=== PATIENT | male | born 1945 | race Caucasian/White ===

== ENCOUNTER 2020-03-26 16:18 | Inpatient (IN) | payer MEDICARE, SELFPAY ==
--- NOTE | ~2020-03-26 | CT_ITS ---
EXAMINATION: CT abdomen pelvis w con INDICATION: Right lower quadrant abdominal pain TECHNIQUE: Computed tomographic images of the abdomen and pelvis were obtained after the administrati on of 100 cc of Omnipaque 350 intravenous contrast. The dose-length product (DLP) was 1390.99 mGy-cm. Automated exposure control and iterative reconstruction technique were employed. COMPARISON: 09/01/2015 FINDINGS: Minimal dependent atelectasis is present in the lung bases. The heart size is normal. There appears to be mild enlargement of the right coronary artery in its midportion of unclear significanc e. Emphysema is also noted in the visualized lung bases. The heart size is normal. There is calcified coronary artery atherosclerosis. The liver, spleen, pancreas, and adrenal glands are normal. A stone is present in the nondistended gallbladder. There is an appendicolith in the base of the appendix wh ich is dilated up to 1.6 cm. There is edematous stranding of the periappendiceal fat. No periappendic eal abscess is identified. There are tiny foci of gas near the cecum which appear to be extraluminal. There is calcified atherosclerosis of the aorta and many of the other arteries. There are no dilated loops of bowel. No pathologically enlarged abdominal or pelvic lymph nodes are identified. There is severe lumbar spondylosis. There is a fat-containing umbilical hernia. IMPRESSION: 1. Ruptured acute appendicitis without abscess. 2. Cholelithiasis without evidence of cholecystitis. 3. Mild enlargement of the right coronary artery and its midportion of unclear significance. Reviewed, dictated and finalized at location A.
--- NOTE | ~2020-03-26 | XR_ITS ---
EXAMINATION: XR chest 1V portable INDICATION: COPD TECHNIQUE: Portable AP chest at 2150 hours COMPARISON: 07/15/2017 FINDINGS: Lucencies in the upper lung zones are consistent with emphysema. There is no pleural effusi on or pneumothorax. The heart size is normal for technique. IMPRESSION: 1. Emphysema Reviewed, dictated and finalized at location A. IMPRESSION: 1. Emphysema
--- NOTE | ~2020-03-26 | XR_ITS ---
EXAMINATION: XR chest 2V DATE: 03/29/2020 08:14 INDICATION: Congestive heart failure. TECHNIQUE: Frontal and lateral views of the chest were obtained. COMPARISON: Chest single view 03/26/2020, CT abdomen and pelvis 03/26/2020 FINDINGS: There are lucencies in the lungs, consistent with emphysema. There are airspace opacities i n the lower lung zones. No pleural effusion or pneumothorax. The heart size is normal. IMPRESSION: 1. Airspace opacities in the lower lung zones, consistent with atelectasis versus pneumonia. 2. Emphysema. Reviewed, dictated and finalized at location A. IMPRESSION: 1. Airspace opacities in the lower lung zones, consistent with atelectasis vers us pneumonia. 2. Emphysema.
[2020-03-26 16:23] VITALS: BP 113/85; PULSE 88; RESP 18; TEMP 36.8; O2SAT 96
[2020-03-26 16:39] LABS: Basophils Absolute Auto 0.1 K/mm3 (0.0-0.1); Basophils Percent Auto 0.3 % (0.2-1.2); Eosinophils Percent Auto 0.1 % (0-4.4); Hematocrit 51.7 % (42.0-52.0); Hemoglobin 17.6 g/dL (14.0-18.0); Immature Granulocyte Absolute 0.05 K/mm3 (0.00-0.031); Immature Granulocyte Percent A 0.3 % (0-0.5); Lymphocytes Absolute Auto 1.33 K/mm3 (0.9-3.2); Lymphocytes Percent Auto 9.2 % (18.3-44.2); Mean Corpuscular Hemoglobin 34.2 pg (26-34); Mean Corpuscular Volume 100.4 fl (80-100); Mean Platelet Volume 10.8 fl (7.4-10.4); Monocytes Absolute Auto 1.5 K/mm3 (0.1-0.6); Monocytes Percent Auto 10.4 % (2.6-8.5); Neutrophils Absolute Auto 11.4 K/mm3 (1.3-6.7); Neutrophils Percent Auto 79.7 % (45.5-73.1); Platelet Count Result 177 k/mm3 (150-375); Red Blood Count 5.15 M/mm3 (4.6-6.20); Red Cell Distribution Width 14.2 % (11.5-14.5); White Blood Count 14.4 K/mm3 (4.5-10.0)
[2020-03-26 16:51] LABS: Alanine Aminotransferase 22 U/L (4-50); Albumin Level 4.7 g/dL (3.5-5.1); Alkaline Phosphatase 73 U/L (38-126); Aspartate Amino Transferase 29 U/L (17-59); Bilirubin,Total 2.8 mg/dL (0.2-1.3); Blood Urea Nitrogen 23 mg/dL (9-20); Calcium 9.6 mg/dL (8.4-10.2); Carbon Dioxide 23 mmol/L (22-30); Chloride 103 mmol/L (98-107); Estimated CRCL calculation 57 ml/min; Estimated Glomerular Filt Rate 54; Glucose 155 mg/dL (75-110); Lipase 53 U/L (23-300); Potassium 4.1 mmol/L (3.4-5.0); Sodium 137 mmol/L (137-145)
[2020-03-26 17:11] LABS: Add Urine Microscopic? YES; Appearance Urine Clear (Clear); Bilirubin Urine Negative (Negative); Blood Urine 1+ (Negative); Color Urine Yellow (Yellow); Glucose Urine UA Negative (Negative); Ketones Urine Negative (Negative); Leukocyte Esterase Ur Negative LEU/UL (Negative); Mucus Urine Few /lpf; Nitrate Urine Negative (Negative); Protein Urine Negative (Negative); Specific Grav Ur 1.023 (1.001-1.035); Squamous Epithelial Cell Urine Rare /hpf (Few); WBC Urine 0-3 /hpf
--- NOTE | 2020-03-26 18:51 | ECG_ITS ---
Measurements Intervals [place] Rate: 141 P: MS: 0 QRS: -59 QRSD: 134 T: 1 QT: 327 QTc: 501 Interpretive Statements ATRIAL FIBRILLATION WITH RAPID VENTRICULAR RESPONSE VENTRICULAR PREMATURE COMPLEX RIGHT BUNDLE BRANCH BLOCK CONSIDER INFERIOR INFARCT, AGE INDETERMINATE BASELINE ARTIFACT- I, III, AVR, AVL, AVF, V1-V2, V6 ABNORMAL ECG Electronically Signed On 03-27-2020 7:31:45 CDT by Nikita Bolaños D.O.
--- NOTE | 2020-03-26 18:55 | ED.GENADULT ---
HPI - General Adult General Chief complaint: Abdominal Pain Stated complaint: rlq abd pain Time Seen by Provider: 03/26/20 18:37 History of Present Illness HPI narrative: Patient is a 74 y/o male complaining of right lower abdominal pain since yesterday. He describes his pain as sharp with no radiation. He rates his pain as 10/10. He took Exedrin which relieved his pain slightly. He denies any fever, chest pain, nausea, vomiting, diarrhea or dysuria. Related Data Home Medications Medication Instructions Recorded Confirmed apixaban [Eliquis] 5 mg PO DAILY 03/26/20 03/26/20 carvedilol 12.5 mg PO BID 03/26/20 03/26/20 furosemide 40 mg PO DAILY 03/26/20 03/26/20 insulin detemir U-100 [Levemir 28 unit SUBCUT HS 03/26/20 03/26/20 U-100 Insulin] losartan 25 mg PO DAILY 03/26/20 03/26/20 Allergies Allergy/AdvReac Type Severity Reaction Status Date / Time No Known Allergies Allergy Verified 03/26/20 16:25 Review of Systems Constitutional: Constitutional: Denies chills, Denies fever(s), Denies headache(s) and Denies weakness Eyes: Eyes: Denies blurry vision ENT: Denies headache(s) and Denies neck pain Cardiovascular: Cardiovascular: Denies chest pain and Denies dyspnea Respiratory: Respiratory: Denies cough and Denies dyspnea Gastrointestinal: Gastrointestinal: Reports abdominal pain, Denies diarrhea, Denies nausea and Denies vomiting Genitourinary: Genitourinary: Denies hematuria and Denies dysuria Musculoskeletal: Musculoskeletal: Denies back pain and Denies neck pain Neurologic: Denies headache(s) and Denies weakness [facility] Social History Social History Smoking packs per day: 2 Smoking cigarettes per day: 40.0 Years smoked: 25 Smoking pack-years: 50.00 Smoking status: Former smoker Second hand tobacco smoke exposure: Yes Alcohol intake: never Substance use: never Gender identity (if verbalized by the patient): Male Spiritual care concerns: No Exam Const: General: no acute distress and well developed Orientation/consciousness: oriented to person, oriented to place, oriented to time and patient oriented x3 HENMT: Head: normocephalic Ears: external ears normal General nose exam: Normal external nose present Eyes: General: appearance normal, both eyes and all related structures Conjunctivae: conjunctivae normal Neck: Neck: normal visual inspection and full ROM Chest: Chest palpation & inspection: normal inspection of the chest and no tenderness Resp: Effort & Inspection: normal respiratory effort Auscultation: clear to auscultation bilaterally Cardio: Rate: tachycardic Rhythm: abnormal rhythm irregularly irregular GI: GI Palp: Yes abdominal tenderness (+RLQ) and Yes Soft to palpation Skin: General skin exam: normal color and turgor normal Lesions: other (skin lesion left nose) Neuro: General: oriented to person, oriented to place, oriented to time and patient oriented x3 Cognition (Neuro): normal cognition Extrem: General: normal to inspection, full ROM and no pedal edema Psych: Appearance: grossly normal Mental Status: mental status grossly normal Affect: normal affect Course Consultations Consultation #1: Discussed with Dr. Sullivan (surgery), who agrees to admit. He also recommends medicine consult. Date: 03/26/20 Time: 21:30 Consultation #2: Discussed with Dr. Brown, who agrees to consult. Date: 03/26/20 Time: 21:35 Vital Signs Vital signs: Vital Signs Temperature 36.8 C 03/26/20 16:23 Pulse Rate 88 03/26/20 16:23 Respiratory Rate 18 03/26/20 16:23 Blood Pressure 113/85 03/26/20 16:23 Pulse Oximetry 96 03/26/20 16:23 Temperature 37.5 C 03/26/20 22:50 Pulse Rate 92 03/26/20 22:50 Respiratory Rate 20 03/26/20 22:50 Blood Pressure 119/76 03/26/20 22:50 Pulse Oximetry 93 03/26/20 22:50 Medical Decision Making Vital Signs Vital Signs: Vital Signs Temperature 36.
--- NOTE | 2020-03-26 19:04 | PC.NURSE ---
Called lab to add ani tay
[2020-03-26] MEDS: MORPHINE SULFATE 4 MG/ML INJ IV PUSH (19:26)
[2020-03-26] MEDS: dilTIAZem HCl INJ 25 MG/5 ML VIAL IV PUSH (19:45)
[2020-03-26 19:46] VITALS: BP 117/85; PULSE 144
[2020-03-26 20:03] LABS: Troponin I < 0.012 ng/mL (0.000-0.034)
[2020-03-26 20:10] LABS: INR 1.5
[2020-03-26 20:11] LABS: Partial Thromboplastin Time 34.5 SECONDS (22.3-36.8)
[2020-03-26 21:30] VITALS: BP 109/84; PULSE 103; RESP 20; O2SAT 92
[2020-03-26] MEDS: SODIUM CHLORIDE 0.9% IV 1,000 ML 999 ML IV CONT (21:40)
[2020-03-26 21:46] LABS: Glucose Point of Care 176 (65-105)
[2020-03-26 22:20] VITALS: BP 104/72; PULSE 99; RESP 20; O2SAT 98
[2020-03-26 22:23] LABS: Lactic Acid Reflex 1.3 mmol/L (0.7-2.1)
[2020-03-26 22:50] VITALS: BP 119/76; PULSE 92; RESP 20; TEMP 37.5; O2SAT 93
[2020-03-26 22:57] LABS: NT Pro B Type Natriuretic Pept 1790 PG/ML (5-100); Troponin I < 0.012 ng/mL (0.000-0.034)
--- NOTE | 2020-03-26 23:05 | ADMGEN ---
This patient, Jack Becerril III, was admitted to IMU Room 209-01. Patient/family oriented to hospital policies and general routines including ID bracelet, bed and alarms, visiting hours, pain management, procedures, bathroom and other care routines, personal items, smoking policy, room service/diet, and visiting hours. Valuables list has been completed. Information on how to activate the Rapid Response Team has been discussed. Patient/Family are encouraged to report perceived risks to care and to ask questions if they do not understand what they are told or what they should do. PT ARRIVED 2300 03/26/20
[2020-03-26 23:07] VITALS: BMI 31.6
[2020-03-26] MEDS: SODIUM CHLORIDE 0.9% IV 1,000 ML 125 ML IV CONT (23:32)
[2020-03-26 23:56] VITALS: PULSE 94
[2020-03-27] VITALS (21 sets, daily range): BP systolic 101–121; BP diastolic 70–92; PULSE 65–120; RESP 18–25; TEMP 36.6–39; O2SAT 90–99
--- NOTE | 2020-03-27 01:15 | PM.IMHP ---
H&P: HPI History of Present Illness Chief complaint: rupture appendicitis Narrative: Thank you for consulting us to see this 74 year old type I Diabetic male who presented to the hospital with a complaint of RLQ abdominal pain since yesterday. The patient describes sitting in his chair yesterday afternoon and when he stood up he felt something pull in his RLQ abdomen which resulted in persistent pain. Associated symptoms include nausea and vomiting. His last full meal was yesterday around lunch time and today he ate one bite of breakfast and one bite of lunch before he became nauseated and stopped eating. Today he finally decided to come to the ER as his abdominal pain was becoming unbearable. In the ER tonight the patient was discovered to have a ruptured appendicitis on CT scan. The patient was subsequently found to be in rapid atrial fibrillation and was treated with cardizem IV bolus and started on a cardizem IV drip. On my encounter with the patient he continues to complaint of RLQ abdominal pain but denies any chest pain or palpitations. We have been consulted for medical management. [facility] Social History Social History Smoking packs per day: 2 Smoking cigarettes per day: 40.0 Years smoked: 25 Smoking pack-years: 50.00 Smoking status: Former smoker Second hand tobacco smoke exposure: Yes Alcohol intake: never Substance use: never Gender identity (if verbalized by the patient): Male Spiritual care concerns: No Meds Home Medications and Allergies Home Medications Medication Instructions Recorded Confirmed Type apixaban [Eliquis] 5 mg PO DAILY 03/26/20 03/26/20 History carvedilol 12.5 mg PO BID 03/26/20 03/26/20 History furosemide 40 mg PO DAILY 03/26/20 03/26/20 History insulin detemir U-100 [Levemir 28 unit SUBCUT HS 03/26/20 03/26/20 History U-100 Insulin] losartan 25 mg PO DAILY 03/26/20 03/26/20 History Allergies Allergy/AdvReac Type Severity Reaction Status Date / Time No Known Allergies Allergy Verified 03/26/20 16:25 Vital Signs Vital Signs - 24 hr 03/26/20 16:23 03/26/20 19:46 03/26/20 21:30 Temperature 36.8 C Pulse Rate 88 144 H 103 H Respiratory Rate 18 20 Blood Pressure 113/85 117/85 109/84 Pulse Oximetry 96 92 03/26/20 22:20 03/26/20 22:50 03/26/20 23:56 Temperature 37.5 C Pulse Rate 99 92 94 Respiratory Rate 20 20 Blood Pressure 104/72 119/76 Pulse Oximetry 98 93 H&P: Results Labs Labs: Short CBC 03/26/20 Range/Units 16:31 WBC 14.4 H (4.5-10.0) K/mm3 Hgb 17.6 (14.0-18.0) g/dL Hct 51.7 (42.0-52.0) % Plt Count 177 (150-375) k/mm3 BMP 03/26/20 16:31 Sodium 137 Potassium 4.1 Chloride 103 Carbon Dioxide 23 BUN 23 H Creatinine 1.30 Glucose 155 H Calcium 9.6 Cardiac Enzymes 03/26/20 03/26/20 Range/Units 19:26 22:01 Troponin I < 0.012 < 0.012 (0.000-0.034) ng/mL Liver Function 03/26/20 Range/Units 16:31 Total Bilirubin 2.8 H (0.2-1.3) mg/dL AST 29 (17-59) U/L ALT 22 (4-50) U/L Alkaline Phosphatase 73 (38-126) U/L Albumin 4.7 (3.5-5.1) g/dL Urine 03/26/20 Range/Units 16:47 Urine Color Yellow (Yellow) Urine Appearance Clear (Clear) Urine pH 5.0 (5.0-9.0) Ur Specific [place] 1.023 (1.001-1.035) Urine Protein Negative (Negative) mg/dL Urine Glucose (UA) Negative (Negative) mg/dL
[2020-03-27 05:15] LABS: Basophils Absolute Auto 0.1 K/mm3 (0.0-0.1); Basophils Percent Auto 0.3 % (0.2-1.2); Eosinophils Percent Auto 0.1 % (0-4.4); Hematocrit 46.8 % (42.0-52.0); Immature Granulocyte Absolute 0.13 K/mm3 (0.00-0.031); Immature Granulocyte Percent A 0.8 % (0-0.5); Lymphocytes Absolute Auto 1.15 K/mm3 (0.9-3.2); Lymphocytes Percent Auto 7.5 % (18.3-44.2); Mean Corpuscular HGB Conc 34.2 g/dl (32-36); Mean Corpuscular Hemoglobin 34.5 pg (26-34); Mean Corpuscular Volume 100.9 fl (80-100); Monocytes Absolute Auto 1.4 K/mm3 (0.1-0.6); Monocytes Percent Auto 9.3 % (2.6-8.5); Neutrophils Absolute Auto 12.6 K/mm3 (1.3-6.7); Platelet Count Result 150 k/mm3 (150-375); Red Blood Count 4.64 M/mm3 (4.6-6.20); Red Cell Distribution Width 14.3 % (11.5-14.5); White Blood Count 15.4 K/mm3 (4.5-10.0)
[2020-03-27 05:24] LABS: INR 1.8; Prothrombin Time 20.8 Seconds (11.1-14.7)
[2020-03-27 05:30] LABS: Alanine Aminotransferase 17 U/L (4-50); Albumin Level 3.8 g/dL (3.5-5.1); Alkaline Phosphatase 55 U/L (38-126); Aspartate Amino Transferase 26 U/L (17-59); Bilirubin,Total 2.9 mg/dL (0.2-1.3); Blood Urea Nitrogen 26 mg/dL (9-20); Calcium 8.4 mg/dL (8.4-10.2); Carbon Dioxide 23 mmol/L (22-30); Chloride 105 mmol/L (98-107); Estimated CRCL calculation 69 ml/min; Estimated Glomerular Filt Rate > 60; Glucose 164 mg/dL (75-110); Magnesium 1.8 mg/dL (1.6-2.3); Potassium 3.6 mmol/L (3.4-5.0); Sodium 137 mmol/L (137-145)
--- NOTE | 2020-03-27 06:00 | PM.IMCN ---
Assessment and Plan Assessment and plan (1) Appendicitis with perforation: Code(s): K35.32 - Acute appendicitis with perforation and localized peritonitis, without abscess Status: Acute Assessment and Plan: Continue General Surgery recommendations. Continue IV antibiotics. (2) Atrial fibrillation with RVR: Code(s): I48.91 - Unspecified atrial fibrillation Status: Acute Assessment and Plan: Consider Cardiology consultation in am. Continue Cardizem IV for rate control. We will consider adding Digoxin IV for rate control if needed. Telemetry. Check TSH w/ reflex T4, Echocardiogram in am. Hold Elquis as the patient will likely need surgery for his ruptured appendicitis. (3) Diabetes mellitus: Qualifiers: Diabetes mellitus type: type 1 Diabetes mellitus complication status: without complication Qualified Code(s): E10.9 - Type 1 diabetes mellitus without complications Code(s): E11.9 - Type 2 diabetes mellitus without complications Status: Chronic Assessment and Plan: Accuchecks, SSI Coverage, Hypoglycemic protocol. (4) Hypertension: Qualifiers: Hypertension type: unspecified Qualified Code(s): I10 - Essential (primary) hypertension Code(s): I10 - Essential (primary) hypertension Status: Chronic Assessment and Plan: Monitor blood pressure. Resume home Coreg when appropriate. (5) CHF (congestive heart failure): Qualifiers: Heart failure type: unspecified Heart failure chronicity: chronic Qualified Code(s): I50.9 - Heart failure, unspecified Code(s): I50.9 - Heart failure, unspecified Status: Chronic Assessment and Plan: Currently compensated. Monitor Is and Os, daily weights. We will consider Lasix IV as needed. Resume home oral CHF meds when the patient is eating again. Additional Plan Date of service was 03/26/2020 at 22:00 hrs. [facility] Data of Consult Consult date: 03/27/20 Requesting Physician: Yeyo Sullivan MD Primary Care Provider: Dustin Martinez MD Consult Narrative Narrative: Thank you for consulting us to see this 74 year old type I Diabetic male who presented to the hospital with a complaint of RLQ abdominal pain since yesterday. The patient describes sitting in his chair yesterday afternoon and when he stood up he felt something pull in his RLQ abdomen which resulted in persistent pain. Associated symptoms include nausea and vomiting. His last full meal was yesterday around lunch time and today he ate one bite of breakfast and one bite of lunch before he became nauseated and stopped eating. Today he finally decided to come to the ER as his abdominal pain was becoming unbearable. In the ER tonight the patient was discovered to have a ruptured appendicitis on CT scan. The patient was subsequently found to be in rapid atrial fibrillation and was treated with cardizem IV bolus and started on a cardizem IV drip. On my encounter with the patient he continues to complaint of RLQ abdominal pain but denies any chest pain or palpitations. We have been consulted for medical management. Review of Systems Review of Systems: All systems reviewed & are unremarkable except as noted in HPI and below PMFSH Past Medical History Medical History CHF (congestive heart failure) Diabetes mellitus Hypertension Surgical History Surgical History History of back surgery Family History Family History Other Diabetes mellitus Social History Social History Smoking packs per day: 2 Smoking cigarettes per day: 40.0 Years smoked: 25 Smoking pack-years: 50.00 Smoking status: Former smoker Second hand tobacco smoke exposure: Yes Alcohol intake: never Substance use: never
--- NOTE | 2020-03-27 06:09 | ECHO_ITS ---
Patient Info Name: Jack Becerril Age: 74 years : 1945 Gender: Male Ht: 73 in Wt: 239 lbs BSA: 2.39 m2 HR: 91 bpm BP: 112 / 71 mmHg Heart Rhythm: Atrial Fibrillation Technical Quality: Good Exam Date: 03/27/2020 10:12 AM Exam Location: [facility] Patient Status: Inpatient Admit Date: 03/26/2020 Staff Ordering Physician: Nikhil Brown MD [employer] Clerk: Robbin Beard RDCS, RT Attending Provider: Yeyo Sullivan MD Referring Physician: Stephanie CANTU; Exam Type: CA echo doppler color flow Study Info Indications I48.1 - Persistent atrial fibrillation Complete two-dimensional, color flow and Doppler transthoracic echocardiogram is performed. Summary 1. Left ventricular chamber dimension is moderately enlarged. 2. Left ventricular systolic function is severely reduced, estimated at 25-30%. 3. There is mildly increased left ventricular wall thickness. 4. The left ventricular diastolic function is abnormal. 5. Left atrial chamber dimension is severely enlarged. 6. Right atrial chamber dimension is mildly enlarged. 7. There is moderate mitral valve regurgitation. 8. There is mild tricuspid valve regurgitation. 9. RVSP between 30 - 35 mm Hg. 10. The aortic root size at the sinus of Valsalva is mildly dilated. 11. The prox ascending aorta size is moderately dilated. Left Ventricle Left ventricular chamber dimension is moderately enlarged. Left ventricular systolic function is severely reduced, estimated at 25-30%. There is mildly increased left ventricular wall thickness. The left ventricular diastolic function is abnormal. Right Ventricle Right ventricular chamber dimension is normal. Right ventricular systolic function is normal. Left Atria Left atrial chamber dimension is severely enlarged. Right Atria Right atrial chamber dimension is mildly enlarged. Atrial Septum Intact interatrial septum visualized by color flow imaging. Aortic Valve The aortic valve is trileaflet. There is mild aortic valve sclerosis. There is no aortic valve stenosis. There is trace aortic valve regurgitation. Pulmonic Valve The pulmonic valve is normal. There is no pulmonic valve stenosis. There is trace pulmonic regurgitation. Mitral Valve The mitral valve has calcified annulus. There is no mitral valve stenosis. There is moderate mitral valve regurgitation. Tricuspid Valve The tricuspid valve leaflets are normal. There is no significant tricuspid valve stenosis. There is mild tricuspid valve regurgitation. RVSP between 30 - 35 mm Hg. Pericardium/Pleural The pericardium appears normal. There is no pericardial effusion. Inferior Vena Cava Dilated inferior vena cava with <50% collapse upon inspiration consistent with elevated right atrial pressure, 15 mmHg. Aorta The aortic root size at the sinus of Valsalva is mildly dilated. The prox ascending aorta size is moderately dilated. Left Ventricular Outflow Tract Name Value Normal LVOT 2D LVOT Diameter 2.3 cm LVOT Doppler LVOT Peak Gradient 3 mmHg LVOT Mean Gradient 2 mm
[2020-03-27] MEDS: SODIUM CHLORIDE 0.9% IV 1,000 ML 125 ML IV CONT (07:50)
--- NOTE | 2020-03-27 10:18 | PM.IMHP ---
H&P: HPI History of Present Illness Chief complaint: rupture appendicitis Narrative: Jack Becerril III is a 74 year old male with a history of congestive heart failure, hypertension, atrial fibrillation on chronic anticoagulation, and insulin-dependent diabetes mellitus, who presented to the emergency department with complaints of right lower quadrant abdominal pain. He reports he had a sudden onset of right lower quadrant abdominal pain at noon on Wednesday, 2 days ago. The pain was initially mild but progressively worsened over time. He reports a poor appetite with some nausea, but no vomiting yesterday. Denies fever or chills. The abdominal pain brought him to the emergency department for further evaluation. CT scan of the abdomen and pelvis showed ruptured acute appendicitis with an appendicolith in the base of the appendix measuring up to 1.6 cm with surrounding fat stranding and tiny foci of gas near the cecum. Incidentally noted is cholelithiasis and mild enlargement of the right coronary artery of unclear significance. Labs showed leukocytosis with a white blood cell count of 14,400. He has had troponins drawn that were negative x2. BNP 1790. EKG also performed in the ER and showed atrial fibrillation with RVR with a heart rate of 141. Chest x-ray showed emphysema. The ED physician contacted our service due to the ruptured acute appendicitis and the patient was admitted, started on IV antibiotics, IV fluids, and analgesics. The hospitalist was consulted for medical management and due to the atrial fibrillation with RVR. The patient was started on a Cardizem drip and his heart rate has approved as of this morning. The patient is now being seen on the medical floor. Since being admitted, the patient does report his pain has improved some and he is less tender. He denies any nausea at this time. Bowels have been moving normally. No other complaints at this time. He reports last taking his Eliquis around 8-9 a.m. yesterday morning. Review of Systems Constitutional: Constitutional: Reports as per HPI, Denies chills, Denies excessive sweating, Denies fatigue, Denies fever(s), Denies headache(s), Reports poor appetite and Denies weakness Eyes: Eyes: Denies change in vision and Denies loss of vision ENT: Reports Normal hearing present, Denies dizziness and Denies headache(s) Cardiovascular: Cardiovascular: Denies chest pain, Denies syncope, Denies leg edema, Denies lightheadedness, Denies radiating jaw, neck or arm pain and Denies dyspnea Respiratory: Respiratory: Denies cough, Denies dyspnea and Denies wheezing Gastrointestinal: Gastrointestinal: Reports as per HPI, Reports abdominal pain (RLQ), Denies melena, Denies bloating, Denies hematochezia, Denies constipation, Denies diarrhea, Reports nausea and Denies vomiting Musculoskeletal: Musculoskeletal: Denies deformity, Denies joint swelling, Denies radiating pain into limb and Denies tingling Integumentary/Breasts: Skin/Breast: Denies pruritus, Reports lesions (black nose lesion x 2 years), Denies wounds and Denies jaundice Neurologic: Reports Normal hearing present, Denies confusion, Denies dizziness, Denies syncope, Denies headache(s), Denies loss of vision, Denies tingling, Denies tremor(s) and Denies weakness Psychiatric: Psychiatric: Denies anxiety, Denies confusion and Denies depression Endocrine: Endocrine: Denies cold intolerance, Denies excessive sweating, Denies fatigue and Denies heat intolerance Hematologic/Lymphatic: Hematologic/Lymphatic: Reports easy bruising (on Eliquis) [facility] Past Medical History Medical History Atrial fibrillation CHF (congestive heart failure) Hypertension Type 1 diabetes mellitus Surgical History Surgical History History of back surgery x 3 Family History Family History Father D
[2020-03-27] MEDS: LACTATED RINGERS 1,000 ML 30 ML IV CONT (12:20)
[2020-03-27 12:51] LABS: Glucose Point of Care 164 (65-105)
--- NOTE | 2020-03-27 12:52 | WPDANESEPPF ---
Anes - Initial Pre Proc Eval Procedure: Operation Date: 03/27/20 13:30 Proposed Procedures p Laparoscopic Appendectomy - Yeyo Sullivan MD Date/Time: 03/27/20 12:52 Surgeon: Yeyo Sullivan MD Pre Op Diagnosis: rupture appendicitis Patient Data Age: 74 Gender: M Height: 1.85 m Weight: 108.8 kg Last Vital Signs Temp 37.5 C 03/27/20 12:33 Pulse 99 03/27/20 12:33 Resp 20 03/27/20 12:33 BP 112/77 03/27/20 12:33 Pulse Ox 95 03/27/20 12:33 Allergies Allergy/AdvReac Type Severity Reaction Status Date / Time No Known Allergies Allergy Verified 03/26/20 16:25 Home Medications Medication Instructions Recorded Confirmed Type apixaban [Eliquis] 5 mg PO DAILY 03/26/20 03/26/20 History carvedilol 12.5 mg PO BID 03/26/20 03/26/20 History furosemide 40 mg PO DAILY 03/26/20 03/26/20 History insulin detemir U-100 [Levemir 28 unit SUBCUT HS 03/26/20 03/26/20 History U-100 Insulin] losartan 25 mg PO DAILY 03/26/20 03/26/20 History Laboratory Tests 03/26/20 03/26/20 03/26/20 16:31 16:31 16:31 WBC 14.4 K/mm3 H K/mm3 (4.5-10.0) RBC 5.15 M/mm3 M/mm3 (4.6-6.20) Hgb 17.6 g/dL g/dL (14.0-18.0) Hct 51.7 % % (42.0-52.0) MCV 100.4 fl H fl (80-100) MCH 34.2 pg H pg (26-34) MCHC 34.0 g/dl g/dl (32-36) RDW 14.2 % % (11.5-14.5) Plt Count 177 k/mm3 k/mm3 (150-375) MPV 10.8 fl H fl (7.4-10.4) Immature Gran % (Auto) 0.3 % % (0-0.5) Neut % (Auto) 79.7 % H % (45.5-73.1) Lymph % (Auto) 9.2 % L % (18.3-44.2) [place] % (Auto) 10.4 % H % (2.6-8.5) Eos % (Auto) 0.1 % % (0-4.4) Baso % (Auto) 0.3 % % (0.2-1.2) Lymph # (Auto) 1.33 K/mm3 K/mm3 (0.9-3.2) [place] # (Auto) 1.5 K/mm3 H K/mm3 (0.1-0.6) Eos # (Auto) 0.0 K/mm3 K/mm3 (0-0.3) Baso # (Auto) 0.1 K/mm3 K/mm3 (0.0-0.1) Abs Immat Gran (auto) 0.05 K/mm3 H K/mm3 (0.00-0.031) Absolute Neuts (auto) 11.4 K/mm3 H K/mm3 (1.3-6.7) Absolute Nucleated RBC 0.0 K/mm3 K/mm3 (0.0-0.012) Nucleated RBC % 0.0 % % (0.0-0.2) PT 18.0 Seconds H Seconds (11.1-14.7) INR 1.5 APTT 34.5 SECONDS SECONDS (22.3-36.8) Sodium 137 mmol/L mmol/L (137-145) Potassium 4.1 mmol/L mmol/L (3.4-5.0) Chloride 103 mmol/L mmol/L (98-107) Carbon Dioxide 23 mmol/L mmol/L (22-30) BUN 23 mg/dL H mg/dL (9-20) Creatinine 1.30 mg/dL mg/dL (0.7-1.3) Estim Creat Clear Calc 57 ml/min ml/min Estimated GFR 54 L (59 - ) Glucose 155 mg/dL H mg/dL (75-110) POC Capillary Glucose Lactic Acid Calcium 9.6 mg/dL mg/dL (8.4-10.2) Magnesium Total Bilirubin 2.8 mg/dL H mg/dL (0.2-1.3) AST 29 U/L U/L (17-59) ALT 22 U/L U/L (4-50) Alkaline Phosphatase 73 U/L U/L (38-126) Troponin I NT-Pro-B Natriuret Pep Total Protein 8.0 g/dL g/dL (6.3-8.2) Albumin 4.7 g/dL g/dL (3.5-5.1) Lipase 53 U/L U/L (23-300) TSH (Reflex) Urine Color Urine Appearance Urine pH Ur Specific [place] Urine Protein Urine Glucose (UA) Urine Ketones Ur Blood (Man) Urine Nitrate Urine Bilirubin Urine Urobilinogen Leukocyte Esterase Rfl Urine RBC Urine WBC Ur Squamous Epith Cells Hyaline Casts Urine Mucus 03/26/20 03/26/20 03/26/20 16:31 16:47 19:26 WBC RBC Hgb Hct MCV MCH MCHC
--- NOTE | 2020-03-27 12:52 | SUR.PREOP ---
1205; PT BROUGHT TO PREOP IN BED. SPOUSE STAYING IN ROOM 209. PT REMAINS ON CARDIZEM DRIP AT 5MG/5ML/HR. PT PLACED ON MONITOR WHILE IN PREOP. DENIES PAIN AT THIS TIME.
[2020-03-27] MEDS: BUPIVACAINE/EPINEPHRINE 0.5% 30 ML VIAL INFILTRATE (14:25)
--- NOTE | 2020-03-27 15:06 | PM.IMPN ---
Progress Note: A&P Assessment and Plan (1) Appendicitis with perforation: Code(s): K35.32 - Acute appendicitis with perforation and localized peritonitis, without abscess Status: Acute Assessment and Plan: Continue General Surgery recommendations. Continue IV antibiotics. 03/27/20 15:06 patient is 74-year-old male had developed right lower quadrant abdominal pain for few days patient pain was persisting patient presented emergency department further evaluation is found to have ruptured appendix, patient is seen by surgery team plan is to take the patient to OR later today for surgical repair, patient still complains of abdominal pain currently denies any nausea or vomiting fever or chills his is present in the room, patient was also found to have atrial fibrillation with RVR this is most likely new onset the patient does have history of hypertension and coronary artery disease, patient is being treated with diltiazem drip and will be seen by boring machine set up operator for further recommendation to follow (2) Atrial fibrillation with RVR: Code(s): I48.91 - Unspecified atrial fibrillation Status: Acute Assessment and Plan: Consider Cardiology consultation in am. Continue Cardizem IV for rate control. We will consider adding Digoxin IV for rate control if needed. Telemetry. Check TSH w/ reflex T4, Echocardiogram in am. Hold Elquis as the patient will likely need surgery for his ruptured appendicitis. (3) Diabetes mellitus: Qualifiers: Diabetes mellitus type: type 1 Diabetes mellitus complication status: without complication Qualified Code(s): E10.9 - Type 1 diabetes mellitus without complications Code(s): E11.9 - Type 2 diabetes mellitus without complications Status: Deleted Assessment and Plan: Accuchecks, SSI Coverage, Hypoglycemic protocol. (4) Hypertension: Qualifiers: Hypertension type: unspecified Qualified Code(s): I10 - Essential (primary) hypertension Code(s): I10 - Essential (primary) hypertension Status: Chronic Assessment and Plan: Monitor blood pressure. Resume home Coreg when appropriate. (5) CHF (congestive heart failure): Qualifiers: Heart failure type: unspecified Heart failure chronicity: chronic Qualified Code(s): I50.9 - Heart failure, unspecified Code(s): I50.9 - Heart failure, unspecified Status: Chronic Assessment and Plan: Currently compensated. Monitor Is and Os, daily weights. We will consider Lasix IV as needed. Resume home oral CHF meds when the patient is eating again. Subjective Date/time seen: 03/27/20 15:06 patient is 74-year-old male had developed right lower quadrant abdominal pain for few days patient pain was persisting patient presented emergency department further evaluation is found to have ruptured appendix, patient is seen by surgery team plan is to take the patient to OR later today for surgical repair, patient still complains of abdominal pain currently denies any nausea or vomiting fever or chills his is present in the room, patient was also found to have atrial fibrillation with RVR this is most likely new onset the patient does have history of hypertension and coronary artery disease, patient is being treated with diltiazem drip and will be seen by boring machine set up operator for further recommendation to follow Review of Systems Review of Systems: All systems reviewed & are unremarkable except as noted in HPI and below Exam Narrative: Exam Narrative: elderly frail Const: General: comfortable and no acute distress HENMT: General nose exam: Normal nares present Mouth: Yes moist mucous membranes Eyes: General: appearance normal, both eyes and all related structures Sclera: sclerae normal Neck: Neck: supple Resp: Effort & Inspection: normal respiratory effort Auscultation: clear to auscultation bilaterally Cardio: Other: irregularly irregular techy GI: Ausc
--- NOTE | 2020-03-27 15:21 | PM.PROC ---
Procedure Note - Detailed Date of procedure: 03/27/20 Pre-op diagnosis: rupture appendicitis Post-op diagnosis: other (small [facility]) Procedure performed: Laparoscopic Appendectomy with placement of MILY drain Description of procedure: The patient was seen again in the Holding Room. The risks, benefits, complications, treatment options, and expected outcomes were discussed with the patient and/or family. The possibilities of reaction to medication, pulmonary aspiration, perforation of viscus, bleeding, recurrent infection, finding a normal appendix, the need for additional procedures, failure to diagnose a condition, and creating a complication requiring transfusion or operation were discussed. There was concurrence with the proposed plan and informed consent was obtained. The site of surgery was properly noted/marked. The patient was taken to Operating Room, and a time out was preformed which identified this as the proper patient, and the procedure verified as laparoscopic appendectomy, possible open. The patient was placed in the supine position and general anesthesia was induced, along with placement of orogastric tube, SCD hose, and a Pichardo catheter. The abdomen was prepped and draped in a sterile fashion. A 5 mm umbilical incision was made and the peritoneal cavity was accessed using the Veress needle technique. Once the abdomen was insufflated to 14 mmHg pressure a 5 mm XL trocar over the 0? 5 mm scope was carefully twisted into the abdomen via the umbilicus. The pneumoperitoneum was then established to steady pressure of 14 mm Hg. A 12 mm laparoscopic port was placed through a transverse suprapubic incision. An additional 5 mm cannula was then placed in the left upper quadrant of the abdomen under direct vision. A careful evaluation of the entire abdomen was carried out. The patient was placed in Trendelenburg and left lateral decubitus position. The small intestines were retracted in the cephalad and left lateral direction away from the pelvis and right lower quadrant. The patient was found to have an enlarged and inflamed appendix that was extending [into the right side of the pelvis. There was evidence of perforation.The patient's appendix was densely adherent to the right lateral sidewall to the right of the cecum walled off by that plus some of the fat hanging off the ileum. The appendix was carefully dissected. Tip of the appendix was pointing posteriorly and I had to rotated anteriorly and inferiorly in order to fit the stapler around the mesoappendix. Once it was free a 45 mm ethicon endogastroentestinal stapler with a vascular load was placed across the mesoappendix. This was fired and hemostasis was checked along the staple line and appeared to be adequate. Then another cartridge containing a vascular load wa applied and the stapler then placed right to the base of the appendix. This was also fired and bleeding was checked. The appendix was then divided at its base using the same 45 mm stapler with a 3.5 mm bowel wall load. Minimal appendiceal stump was left in place. There was no evidence of bleeding, leakage, or complication after division of the appendix at its junction with the cecum.. The appendix was then placed in an endobag which had been brought through the 12 mm suprapubic port site. The appendix and the bag were then extracted through this larger port site in the suprapubic position. Because there was significant exudate and purulence in the right lateral gutter I brought a 10 Spanish flat MILY drain through the 12 mm port position in in that area and brought out through a stab wound in the right lower quadrant of the abdomen. This was done by placing 1 the 5 mm ports through this incision grasping the external end of the MILY drain through this with a grasper then pulling both of them up in out. This was sutured in place with a 3 0 nylon watch that was well positioned along the right gutter. The suprapubic port site was closed using a #1 Poly
--- NOTE | 2020-03-27 15:53 | SUR.PHASEI ---
1530 awakened agitated, confused, pullling at tubings. direct marketing analyst remains at side,sedation given and calm and relaxed.
[2020-03-27 15:59] LABS: Glucose Point of Care 160 (65-105)
[2020-03-27] MEDS: MIDAZOLAM HCL 2 MG/2 ML VIAL 1 MG IV PUSH (16:12)
[2020-03-27] MEDS: SODIUM CHLORIDE 0.9% IV 1,000 ML 120 ML IV CONT (19:14)
[2020-03-27 21:23] LABS: Glucose Point of Care 159 (65-105)
[2020-03-27] MEDS: SENNA/DOCUSATE SODIUM TABLET 2 TAB PO (21:41)
[2020-03-27] MEDS: ACETAMINOPHEN 325 MG TABLET 650 MG PO (21:42)
--- NOTE | 2020-03-27 22:28 | PC.NURSE ---
1200- pt to OR via bed accompanied by RN's
--- NOTE | 2020-03-27 22:29 | PC.NURSE ---
1700 - Returned to room -post surgery- awake - IV cardizem infusing at 5mg/hr-monitor atrial fib 90's-110'. pt awake - explained to pt post op activity, pain management- pt stated he didnt want to hear it - wants to get out of bed now- explained for safety that I needed at least 2 people since he just had received pain medication in PACU-and hes on IV cardizem to help control heart rate ; pt angry / and hollaring at nurse and his - stated we are taking his rights away- tried to talk with pt and this nurse reinforced safety measures. - pt calmed slightly ; call light in reach - bed exit alarm on
[2020-03-28] VITALS (23 sets, daily range): BP systolic 100–119; BP diastolic 56–79; PULSE 54–128; RESP 18–22; TEMP 36.4–37.5; O2SAT 91–97
--- NOTE | 2020-03-28 01:51 | PC.NURSE ---
03/27/20 AT 2100....PATIENT VERY ANGRY AND BELLIGERENT TOWARDS THIS RN. REFUSES SCD'S, INCENTIVE SPIROMETER, OXYGEN. ATTEMPTS TO GET OUT OF BED BY HIMSELF DESPITE TEACHING REGARDING SAFETY AND FALL PREVENTION. WANTS ALL SIDE RAILS DOWN, DOES NOT WANT BED ALARM ON, STATES HE IS BEING HELD IN SHELTER. I OFFERED TO CALL MY CHARGE NURSE FOR FURTHER TEACHING, BUT THE PATIENT REFUSES. BED RAILS UP X 3, BED ALARM ON, CALL LIGHT WITHIN REACH.
--- NOTE | 2020-03-28 03:39 | PC.NURSE ---
PATIENT STATES HE IS GOING TO KEEP SITTING UP IN THE BED TO ACTIVATE THE BED ALARM UNTIL WE TURN IT OFF. ADVISED THE BED ALARM IS FOR SAFETY REASONS AND IT WILL STAY ON. PATIENT IS ALERT AND ORIENTED.
[2020-03-28] MEDS: SODIUM CHLORIDE 0.9% IV 1,000 ML 125 ML IV CONT (04:46)
[2020-03-28 05:07] LABS: Basophils Percent Auto 0.4 % (0.2-1.2); Eosinophils Percent Auto 0.1 % (0-4.4); Hematocrit 44.6 % (42.0-52.0); Immature Granulocyte Absolute 0.08 K/mm3 (0.00-0.031); Immature Granulocyte Percent A 0.7 % (0-0.5); Immature Platelet Fraction Pct 4.3 % (0.9-11.2); Lymphocytes Absolute Auto 0.94 K/mm3 (0.9-3.2); Lymphocytes Percent Auto 8.6 % (18.3-44.2); Mean Corpuscular HGB Conc 33.6 g/dl (32-36); Mean Corpuscular Hemoglobin 34.3 pg (26-34); Mean Corpuscular Volume 102.1 fl (80-100); Monocytes Absolute Auto 0.8 K/mm3 (0.1-0.6); Monocytes Percent Auto 7.2 % (2.6-8.5); Neutrophils Absolute Auto 9.1 K/mm3 (1.3-6.7); Platelet Count Result 140 k/mm3 (150-375); Red Blood Count 4.37 M/mm3 (4.6-6.20); Red Cell Distribution Width 14.4 % (11.5-14.5); White Blood Count 10.9 K/mm3 (4.5-10.0)
[2020-03-28 05:09] LABS: Alanine Aminotransferase 17 U/L (4-50); Albumin Level 3.2 g/dL (3.5-5.1); Alkaline Phosphatase 45 U/L (38-126); Anion Gap 12.8 mmol/L (7-16); Aspartate Amino Transferase 33 U/L (17-59); Bilirubin,Total 3.4 mg/dL (0.2-1.3); Blood Urea Nitrogen 25 mg/dL (9-20); Carbon Dioxide 23 mmol/L (22-30); Chloride 107 mmol/L (98-107); Estimated CRCL calculation 71 ml/min; Estimated Glomerular Filt Rate > 60; Glucose 149 mg/dL (75-110); Potassium 3.8 mmol/L (3.4-5.0); Sodium 139 mmol/L (137-145)
[2020-03-28 05:19] LABS: Magnesium 1.9 mg/dL (1.6-2.3)
[2020-03-28 06:10] LABS: Glucose Point of Care 163 (65-105)
--- NOTE | 2020-03-28 06:57 | PC.NURSE ---
03/28/20 at 0500. Patient called this nurse luis a upon entering the room. Then orders me out of the room. Patient very belligerent. Iron Leggett RN, business development intern notified to come and talk to the patient.
[2020-03-28] MEDS: ENOXAPARIN 40 MG/0.4 ML SYRINGE SUB-Q (08:29)
--- NOTE | 2020-03-28 09:39 | WPDANESPN ---
Anes - Prog Note Post-Op Date/Time: 03/28/20 09:39 Cardiovascular status: normal Respiratory status: normal Airway patency: baseline Mental status: baseline Post-Op hydration status: normal Vital Signs: Last Vital Signs Temp 36.6 C 03/28/20 08:22 Pulse 103 H 03/28/20 08:22 Resp 22 H 03/28/20 08:22 BP 110/79 03/28/20 08:22 Pulse Ox 93 03/28/20 09:21 I/O: Intake & Output 03/27/20 03/28/20 03/28/20 23:59 07:59 15:59 Intake Total 600 1150 Output Total 410 360 Balance 190 790 Laboratory Tests 03/28/20 04:30 03/28/20 04:30 03/27/20 03/27/20 03/27/20 12:48 15:57 21:20 WBC RBC Hgb Hct MCV MCH MCHC RDW Plt Count MPV Immature Gran % (Auto) Neut % (Auto) Lymph % (Auto) [place] % (Auto) Eos % (Auto) Baso % (Auto) Lymph # (Auto) [place] # (Auto) Eos # (Auto) Baso # (Auto) Abs Immat Gran (auto) Absolute Neuts (auto) Absolute Nucleated RBC Nucleated RBC % % Immature Plt Fraction Sodium Potassium Chloride Carbon Dioxide Anion Gap BUN Creatinine Estim Creat Clear Calc Estimated GFR Glucose POC Capillary Glucose 164 H 160 H 159 H Calcium Magnesium Total Bilirubin AST ALT Alkaline Phosphatase Total Protein Albumin 03/28/20 03/28/20 03/28/20 04:30 04:30 04:30 WBC 10.9 H RBC 4.37 L Hgb 15.0 Hct 44.6 MCV 102.1 H MCH 34.3 H MCHC 33.6 RDW 14.4 Plt Count 140 L MPV 11.0 H Immature Gran % (Auto) 0.7 H Neut % (Auto) 83.0 H Lymph % (Auto) 8.6 L [place] % (Auto) 7.2 Eos % (Auto) 0.1 Baso % (Auto) 0.4 Lymph # (Auto) 0.94 [place] # (Auto) 0.8 H Eos # (Auto) 0.0 Baso # (Auto) 0.0 Abs Immat Gran (auto) 0.08 H Absolute Neuts (auto) 9.1 H Absolute Nucleated RBC 0.0 Nucleated RBC % 0.0 % Immature Plt Fraction 4.3 Sodium 139 Potassium 3.8 Chloride 107 Carbon Dioxide 23 Anion Gap 12.8 BUN 25 H Creatinine 1.10 Estim Creat Clear Calc 71 Estimated GFR > 60 Glucose 149 H POC Capillary Glucose Calcium 8.0 L Magnesium 1.9 Total Bilirubin 3.4 H AST 33 ALT 17 Alkaline Phosphatase 45 Total Protein 6.0 L Albumin 3.2 L 03/28/20 06:00 WBC RBC Hgb Hct MCV MCH MCHC RDW Plt Count MPV Immature Gran % (Auto) Neut % (Auto) Lymph % (Auto) [place] % (Auto) Eos % (Auto) Baso % (Auto) Lymph # (Auto) [place] # (Auto) Eos # (Auto) Baso # (Auto) Abs Immat Gran (auto) Absolute Neuts (auto) Absolute Nucleated RBC Nucleated RBC % % Immature Plt Fraction Sodium Potassium Chloride Carbon Dioxide Anion Gap BUN Creatinine Estim Creat Clear Calc Estimated GFR Glucose POC Capillary Glucose 163 H Calcium Magnesium Total Bilirubin AST ALT Alkaline Phosphatase Total Protein Albumin Post-procedural complaints: none Patient Feedback: Patient satisfied with anesthetic care.
--- NOTE | 2020-03-28 10:34 | PM.CNCAR ---
Assessment and Plan Assessment and plan (1) Atrial fibrillation with RVR: Code(s): I48.91 - Unspecified atrial fibrillation Status: Acute Assessment and Plan: will restart his carvedilol 12.5 mg p.o. b.i.d.. Discontinue his diltiazem drip if his heart rate is controlled. resume anticoagulation when okay with surgery. (2) Hypertension: Qualifiers: Hypertension type: unspecified Qualified Code(s): I10 - Essential (primary) hypertension Code(s): I10 - Essential (primary) hypertension Status: Chronic Assessment and Plan: At goal (3) CHF (congestive heart failure): Qualifiers: Heart failure type: unspecified Heart failure chronicity: chronic Qualified Code(s): I50.9 - Heart failure, unspecified Code(s): I50.9 - Heart failure, unspecified Status: Chronic Assessment and Plan: Systolic chronic heart failure. Resume losartan when able from a blood pressure perspective. DC IV fluids. PA and lateral chest x-ray tomorrow. will give 1 dose of furosemide 20 mg IV x1 (4) Anticoagulant long-term use: Code(s): Z79.01 - longterm (current) use of anticoagulants Status: Acute Assessment and Plan: Resume Eliquis when able (5) Appendicitis with perforation: Code(s): K35.32 - Acute appendicitis with perforation and localized peritonitis, without abscess Status: Acute Assessment and Plan: per General surgery History of Present Illness History of Present Illness Consult date/time: 03/28/20 10:34 Requesting physician: Ling Cueva MD Consult reason: atrial fibrillation Reason For Visit: rupture appendicitis Narrative: date of service 02/27/2020 Reason consultation: Atrial fibrillation History: Patient is a 74-year-old male who presented to the hospital with right lower quadrant pain. He started having pain within 24 hours prior to admission. He did have associated symptoms of nausea and vomiting. Came to the emergency room because of unbearable pain where he was found to have a ruptured appendix by CT scan. He was also in atrial fibrillation with rapid ventricle response. Cardizem drip was started. Consultation was requested. Patient follows with Dr. Sanchez systolic congestive heart failure, hypertension, diabetes, chronic anticoagulation. He denies any active chest pain, shortness of breath, syncope, presyncope, paroxysmal nocturnal dyspnea, orthopnea, edema or palpitations. With the diltiazem drip this heart rate has been better controlled albeit still elevated. Echocardiogram was performed personally reviewed showing and severely reduced ejection fraction of around 25%. Review of Systems Review of Systems: Narrative: Irritated All systems reviewed & are unremarkable except as noted in HPI and below Constitutional: Constitutional: Denies weakness Eyes: Eyes: Denies blurry vision ENT: Reports Normal hearing present Cardiovascular: Cardiovascular: Denies chest pain Respiratory: Respiratory: Denies dyspnea Gastrointestinal: Gastrointestinal: Reports abdominal pain Genitourinary: Genitourinary: Denies dysuria Musculoskeletal: Musculoskeletal: Denies neck pain Integumentary/Breasts: Skin/Breast: Denies dry skin Comments: cancer noted on his nose Neurologic: Denies headache(s) Psychiatric: Psychiatric: Denies anxiety Endocrine: Endocrine: Denies fatigue Hematologic/Lymphatic: Hematologic/Lymphatic: Denies easy bleeding and Denies easy bruising Allergic/Immunologic: Allergic/Immunologic: Denies GI upset with certain foods and Denies lip swelling PMFSH Past Medical History Medical History Appendicitis with perforation Arthritis Atrial fibrillation Back pain LL4 LL5 BACK SURGERIES CHF (congestive heart failure) Hypertension Obesity Type 1 diabetes mellitus Surgical History Surgical History (Reviewed 03/28/20 @ 10:37
--- NOTE | 2020-03-28 11:16 | PM.PNGS ---
Progress Note: A&P Assessment and Plan (1) Appendicitis with perforation: Code(s): K35.32 - Acute appendicitis with perforation and localized peritonitis, without abscess Status: Acute Assessment and Plan: POD#1 and doing well. Pain is well-controlled. WBC trending down to 10,900 today. Fever overnight of 102.2F, afebrile this morning. Continue broad-spectrum IV antibiotics today. Will allow clear liquid diet this morning. D/c Pichardo catheter. Encouraged patient to get up to the chair with meals today and if stable from cardiac standpoint with the diltiazem drip, then he could try walking a short distance if tolerated. Encouraged IS. Repeat labs tomorrow morning. (2) Anticoagulant long-term use: Code(s): Z79.01 - learning and development manager (current) use of anticoagulants Status: Acute Assessment and Plan: Eliquis is currently on hold. Would be okay from our standpoint to restart his Eliquis as early as an evening dose tonight. (3) Atrial fibrillation with RVR: Code(s): I48.91 - Unspecified atrial fibrillation Status: Acute Assessment and Plan: Currently on Cardizem drip and in a. fib. on the cardiac cath lab manager. Cardiology has been consulted and we appreciate their recommendations. They have restarted his beta aguila and are managing the diltiazem drip. (4) CHF (congestive heart failure): Qualifiers: Heart failure chronicity: chronic Heart failure type: unspecified Qualified Code(s): I50.9 - Heart failure, unspecified Code(s): I50.9 - Heart failure, unspecified Status: Chronic Assessment and Plan: Systolic chronic heart failure. Cardiology following. D/c IV fluids and they are planning to gently diurese the patient. (5) Type 1 diabetes mellitus: Code(s): E10.9 - Type 1 diabetes mellitus without complications Status: Acute (6) Hypertension: Qualifiers: Hypertension type: unspecified Qualified Code(s): I10 - Essential (primary) hypertension Code(s): I10 - Essential (primary) hypertension Status: Chronic Additional Plan Discussed the patient's case and formulated the plan of care with Dr. Sullivan. Subjective Subjective Date/Time Seen: 03/28/20 10:30 Post Op day: 1 (Lap appy) Patient reports: feels better and pain is less Interval history: Patient reports feeling well today. He has very minimal abdominal pain and states it is only when sitting up in the bed with movement. He denies getting out of bed overnight or sitting in the chair this morning. I did help the patient up to the chair while in the room this morning. He denies flatus or BM. Denies nausea, vomiting, or bloating. Has a Pichardo catheter in place. Still on Diltiazem drip. Denies shortness of breath or chest pain. No other complaints at this time. Review of Systems Review of Systems: All systems reviewed & are unremarkable except as noted in HPI and below Constitutional: Constitutional: Reports no additional constitutional complaints, Denies chills and Denies fever(s) Cardiovascular: Cardiovascular: Reports no additional cardiovascular complaints, Denies chest pain and Denies leg edema Respiratory: Respiratory: Reports no additional respiratory complaints, Denies cough, Denies dyspnea and Denies wheezing Gastrointestinal: Gastrointestinal: Reports as per HPI and Reports no additional gastrointestinal complaints Neurologic: Denies confusion and Denies headache(s) Exam Const: General: comfortable, no acute distress, alert and awake Orientation/consciousness: patient oriented x3 Resp: Effort & Inspection: normal respiratory effort and able to speak in complete sentences Auscultation: diminished lung sounds bilateral in the lower lung sotelo Cardio: Rate: tachycardic (HR 108 on cardiac cath lab manager in a. fib.) Rhythm: abnormal rhythm irregularly irregular GI: Inspection: non-distended and incision (Abdominal incisions clean/dry/intact.) GI Palp: Yes Soft t
[2020-03-28] MEDS: FUROSEMIDE INJ 40 MG/4 ML VIAL 20 MG IV PUSH (12:00)
[2020-03-28 12:19] LABS: Glucose Point of Care 134 (65-105)
[2020-03-28] MEDS: carvediloL 12.5 MG TABLET PO ×2 (14:20→21:14)
--- NOTE | 2020-03-28 16:36 | PM.IMPN ---
Progress Note: A&P Assessment and Plan (1) Appendicitis with perforation: Code(s): K35.32 - Acute appendicitis with perforation and localized peritonitis, without abscess Status: Acute Assessment and Plan: Continue General Surgery recommendations. Continue IV antibiotics. 03/28/20 16:36 patient is 74-year-old male had developed right lower quadrant abdominal pain for few days patient pain was persisting patient presented emergency department further evaluation is found to have ruptured appendix, patient is seen by surgery team plan is to take the patient to OR later today for surgical repair, patient still complains of abdominal pain currently denies any nausea or vomiting fever or chills his is present in the room, patient was also found to have atrial fibrillation with RVR this is most likely new onset the patient does have history of hypertension and coronary artery disease, patient is being treated with diltiazem drip and will be seen by clinical data assistant for further recommendation to follow on 03/27 patient was taken to OR and had a surgical repair perforated appendix, today patient is feeling better but still persist but is tolerable, patient is passing gas, and started on clear liquid, denies any nausea or vomiting fever or chills, patient had a new onset atrial fibrillation he was started on diltiazem drip rate is trending down seen by cardiology stop the drip and will resume his Coreg 12.5 mg b.i.d. once it is okay with surgery team will stop anticoagulation. (2) Atrial fibrillation with RVR: Code(s): I48.91 - Unspecified atrial fibrillation Status: Acute Assessment and Plan: Consider Cardiology consultation in am. Continue Cardizem IV for rate control. We will consider adding Digoxin IV for rate control if needed. Telemetry. Check TSH w/ reflex T4, Echocardiogram in am. Hold Elquis as the patient will likely need surgery for his ruptured appendicitis. (3) Diabetes mellitus: Qualifiers: Diabetes mellitus type: type 1 Diabetes mellitus complication status: without complication Qualified Code(s): E10.9 - Type 1 diabetes mellitus without complications Code(s): E11.9 - Type 2 diabetes mellitus without complications Status: Deleted Assessment and Plan: Accuchecks, SSI Coverage, Hypoglycemic protocol. (4) Hypertension: Qualifiers: Hypertension type: unspecified Qualified Code(s): I10 - Essential (primary) hypertension Code(s): I10 - Essential (primary) hypertension Status: Chronic Assessment and Plan: Monitor blood pressure. Resume home Coreg when appropriate. (5) CHF (congestive heart failure): Qualifiers: Heart failure type: unspecified Heart failure chronicity: chronic Qualified Code(s): I50.9 - Heart failure, unspecified Code(s): I50.9 - Heart failure, unspecified Status: Chronic Assessment and Plan: Currently compensated. Monitor Is and Os, daily weights. We will consider Lasix IV as needed. Resume home oral CHF meds when the patient is eating again. Subjective Date/time seen: 03/28/20 16:36 patient is 74-year-old male had developed right lower quadrant abdominal pain for few days patient pain was persisting patient presented emergency department further evaluation is found to have ruptured appendix, patient is seen by surgery team plan is to take the patient to OR later today for surgical repair, patient still complains of abdominal pain currently denies any nausea or vomiting fever or chills his is present in the room, patient was also found to have atrial fibrillation with RVR this is most likely new onset the patient does have history of hypertension and coronary artery disease, patient is being treated with diltiazem drip and will be seen by clinical data assistant for further recommendation to follow on 03/27 patient was taken to OR and had a surgical repair perforated appendix, today patient is feel
[2020-03-28 17:07] LABS: Glucose Point of Care 138 (65-105)
[2020-03-28] MEDS: SENNA/DOCUSATE SODIUM TABLET 2 TAB PO (21:14)
[2020-03-29] VITALS (10 sets, daily range): BP systolic 109–110; BP diastolic 75–88; PULSE 68–116; RESP 18–20; TEMP 36.6–37.9; O2SAT 93–94; BMI 33.3
[2020-03-29 05:12] LABS: Basophils Absolute Auto 0.1 K/mm3 (0.0-0.1); Basophils Percent Auto 0.4 % (0.2-1.2); Eosinophils Absolute Auto 0.1 K/mm3 (0-0.3); Eosinophils Percent Auto 1.2 % (0-4.4); Hematocrit 42.3 % (42.0-52.0); Hemoglobin 14.6 g/dL (14.0-18.0); Immature Granulocyte Absolute 0.09 K/mm3 (0.00-0.031); Immature Granulocyte Percent A 0.8 % (0-0.5); Lymphocytes Absolute Auto 1.04 K/mm3 (0.9-3.2); Lymphocytes Percent Auto 9.3 % (18.3-44.2); Mean Corpuscular HGB Conc 34.5 g/dl (32-36); Mean Corpuscular Hemoglobin 34.6 pg (26-34); Mean Corpuscular Volume 100.2 fl (80-100); Monocytes Absolute Auto 0.9 K/mm3 (0.1-0.6); Monocytes Percent Auto 8.1 % (2.6-8.5); Neutrophils Percent Auto 80.2 % (45.5-73.1); Platelet Count Result 145 k/mm3 (150-375); Red Blood Count 4.22 M/mm3 (4.6-6.20); White Blood Count 11.2 K/mm3 (4.5-10.0)
[2020-03-29 05:24] LABS: Alanine Aminotransferase 52 U/L (4-50); Albumin Level 3.2 g/dL (3.5-5.1); Alkaline Phosphatase 57 U/L (38-126); Anion Gap 12.3 mmol/L (7-16); Aspartate Amino Transferase 88 U/L (17-59); Bilirubin,Total 2.8 mg/dL (0.2-1.3); Blood Urea Nitrogen 28 mg/dL (9-20); Carbon Dioxide 24 mmol/L (22-30); Chloride 104 mmol/L (98-107); Estimated CRCL calculation 70 ml/min; Estimated Glomerular Filt Rate > 60; Glucose 146 mg/dL (75-110); Potassium 3.3 mmol/L (3.4-5.0); Sodium 137 mmol/L (137-145)
[2020-03-29 05:29] LABS: Alanine Aminotransferase 52 U/L (4-50); Albumin Level 3.2 g/dL (3.5-5.1); Alkaline Phosphatase 56 U/L (38-126); Aspartate Amino Transferase 88 U/L (17-59); Bilirubin,Total 2.8 mg/dL (0.2-1.3)
[2020-03-29] MEDS: ACETAMINOPHEN 325 MG TABLET 650 MG PO (08:00)
[2020-03-29] MEDS: POTASSIUM CHLORIDE 20 MEQ TABLET 40 MEQ PO (08:31)
[2020-03-29] MEDS: carvediloL 12.5 MG TABLET PO (08:31)
[2020-03-29] MEDS: ENOXAPARIN 40 MG/0.4 ML SYRINGE SUB-Q (08:32)
--- NOTE | 2020-03-29 09:45 | PM.PNCARD ---
Progress Note: A&P Assessment and Plan (1) Atrial fibrillation with RVR: Code(s): I48.91 - Unspecified atrial fibrillation Status: Acute Assessment and Plan: Continue carvedilol. DC subcu Lovenox. restart Eliquis 5 mg p.o. b.i.d. (2) Hypertension: Qualifiers: Hypertension type: unspecified Qualified Code(s): I10 - Essential (primary) hypertension Code(s): I10 - Essential (primary) hypertension Status: Chronic Assessment and Plan: At goal (3) CHF (congestive heart failure): Qualifiers: Heart failure type: unspecified Heart failure chronicity: chronic Qualified Code(s): I50.9 - Heart failure, unspecified Code(s): I50.9 - Heart failure, unspecified Status: Chronic Assessment and Plan: Systolic chronic heart failure. Resume losartan when able from a blood pressure perspective. (4) Anticoagulant long-term use: Code(s): Z79.01 - termite control representative (current) use of anticoagulants Status: Acute Assessment and Plan: Resume Eliquis (5) Appendicitis with perforation: Code(s): K35.32 - Acute appendicitis with perforation and localized peritonitis, without abscess Status: Acute Assessment and Plan: per General surgery Subjective Date/time seen: 03/29/20 09:45 Interval history: reason for admission: Ruptured appendix. Reason for consultation to Cardiology atrial fibrillation Date of service 03/29/2020: Feels okay. Wants to go home. Tolerating liquids. No chest pain or shortness of breath. Review of Systems Review of Systems: All systems reviewed & are unremarkable except as noted in HPI and below Constitutional: Constitutional: Denies fatigue, Denies headache(s) and Denies weakness Eyes: Eyes: Denies blurry vision ENT: Reports Normal hearing present, Denies headache(s), Denies lip swelling and Denies neck pain Cardiovascular: Cardiovascular: Denies chest pain and Denies dyspnea Respiratory: Respiratory: Denies dyspnea Gastrointestinal: Gastrointestinal: Reports abdominal pain Genitourinary: Genitourinary: Denies dysuria Musculoskeletal: Musculoskeletal: Denies neck pain Integumentary/Breasts: Skin/Breast: Denies dry skin Neurologic: Reports Normal hearing present, Denies headache(s) and Denies weakness Psychiatric: Psychiatric: Denies anxiety Endocrine: Endocrine: Denies fatigue Hematologic/Lymphatic: Hematologic/Lymphatic: Denies easy bleeding and Denies easy bruising Allergic/Immunologic: Allergic/Immunologic: Denies GI upset with certain foods and Denies lip swelling Exam Narrative: Exam Narrative: irritated but answers questions appropriately Const: General: no acute distress HENMT: Other: eschar noted on his nose Eyes: Sclera: sclerae normal Neck: Neck: supple Chest: Other: no reproducible chest wall pain that the patient Cardio: Rate: tachycardic Rhythm: abnormal rhythm irregularly irregular GI: Auscultation: normal bowel sounds Skin: General skin exam: normal color Lesions: lesion noted ( cancer noted on his nose) Neuro: Cranial nerves: Yes Normal hearing present Cognition (Neuro): normal cognition Speech: normal speech Extrem: General: normal to inspection Psych: Mental Status: mental status grossly normal Objective Data Vital Signs Vital Signs: Vital Signs - 24 hr 03/28/20 10:00 03/28/20 12:00 03/28/20 12:19 Temperature 36.7 C Pulse Rate 122 H 108 H 100 Respiratory Rate 22 H 20 Blood Pressure 109/76 Pulse Oximetry 93 95 03/28/20 14:00 03/28/20 14:20 03/28/20 16:00 Temperature Pulse Rate 108 H 116 H 104 H Respiratory Rate Blood Pressure 109/76 Pulse Oximetry 03/28/20 17:10 03/28/20 18:00 03/28/20 20:00 Temperature 36.8 C 37.2 C Pulse Rate 103 H 128 H 115 H Respiratory Rate 20 20 Blood Pressure 116/73 108/76 Pulse Oximetry 94 92 03/28/20 21:14 03/28/20 22:00 03/28/20 23:30 Temperature
--- NOTE | 2020-03-29 12:03 | PM.DS ---
DS: Admitting Diagnosis Admitting Diagnosis Admitting Diagnosis: Acute appendicitis with perforation and localized peritonitis, without abscess atrial fibrillation with RVR diabetes mellitus type 2 basal cell carcinoma of the nose CHF diastolic DS: Discharge Diagnosis Discharge Diagnosis (1) Appendicitis with perforation: Onset Date: ~03/24/20 Code(s): K35.32 - Acute appendicitis with perforation and localized peritonitis, without abscess Status: Acute Assessment and Plan: This was the main reason for the patient's admission. He underwent a laparoscopic appendectomy with drain placement 1 day after his admission. We needed to wait 24 hours because of him taking Eliquis. However, CT scan suggested even upon ER visit that he already had a walled-off perforation of his appendix just lateral to the right colon. ( See report). Patient had uneventful postoperative course. He needed Cardizem drip for a while to control his heart rate but then when he was be able to get back on his oral medicines for his hypertension and heart disease he was having a normal heart rate. Cardiology saw the patient in consultation followed with us. The hospitalist medicine service also followed him for his diabetes and hypertension. (2) Type 1 diabetes mellitus: Onset Date: Unknown Code(s): E10.9 - Type 1 diabetes mellitus without complications Status: Acute Assessment and Plan: Patient was covered with Q 6 hour glucose monitoring and subcu insulin as needed. He will resume his usual Levemir at home once discharge. (3) Anticoagulant long-term use: Onset Date: Unknown Code(s): Z79.01 - intermediate project manager (current) use of anticoagulants Status: Acute Assessment and Plan: Patient has been on Eliquis for his atrial fibrillation. He has had no ill effects from this that we can tell. (4) CHF (congestive heart failure): Onset Date: Unknown Qualifiers: Heart failure chronicity: chronic Heart failure type: unspecified Qualified Code(s): I50.9 - Heart failure, unspecified Code(s): I50.9 - Heart failure, unspecified Status: Chronic Assessment and Plan: Patient continues on his usual medications for this and will resume once he was on at home for it. Echocardiogram during this admission showed only 25% ejection fraction, however he came through surgery in general anesthesia without too much difficulty other than confusion for the few hours following anesthesia. (5) Hypertension: Onset Date: Unknown Qualifiers: Hypertension type: unspecified Qualified Code(s): I10 - Essential (primary) hypertension Code(s): I10 - Essential (primary) hypertension Status: Chronic Assessment and Plan: Patient to resume his home meds. Has not been having significantly high readings here in the hospital. (6) Atrial fibrillation with RVR: Onset Date: Unknown Code(s): I48.91 - Unspecified atrial fibrillation Status: Acute Assessment and Plan: Patient had some RVR in the ER but once he was started on a Cardizem drip and then as we transition back to his pills he has not had any issues with high heart rate. (7) Obesity: Onset Date: Unknown Code(s): E66.9 - Obesity, unspecified Status: Acute Assessment and Plan: BMI is 33. Encouraged him to resume his diabetic diet at home and try to lose some lbs. DS: Summary Time Spent with Patient Time attestation: Total time spent providing and/or coordinating discharge services: 40 min. Exam Const: General: cooperative, no acute distress, alert and awake Orientation/consciousness: patient oriented x3 HENMT: Mouth: Yes moist mucous membranes Neck: Neck: normal visual inspection Chest: Chest palpation & inspection: normal inspection of the chest Resp: Effort & Inspection: normal respiratory effort Auscultation: clear to ausculta
--- NOTE | 2020-03-29 13:57 | PM.IMPN ---
Progress Note: A&P Assessment and Plan (1) Appendicitis with perforation: Onset Date: ~03/24/20 Code(s): K35.32 - Acute appendicitis with perforation and localized peritonitis, without abscess Status: Acute Assessment and Plan: Continue General Surgery recommendations. Continue IV antibiotics. 03/29/20 13:57 patient is 74-year-old male had developed right lower quadrant abdominal pain for few days patient pain was persisting patient presented emergency department further evaluation is found to have ruptured appendix, patient is seen by surgery team plan is to take the patient to OR later today for surgical repair, patient still complains of abdominal pain currently denies any nausea or vomiting fever or chills his is present in the room, patient was also found to have atrial fibrillation with RVR this is most likely new onset the patient does have history of hypertension and coronary artery disease, patient is being treated with diltiazem drip and will be seen by archeology faculty member for further recommendation to follow on 03/27 patient was taken to OR and had a surgical repair perforated appendix, today patient is feeling better but still persist but is tolerable, patient is passing gas, and started on clear liquid, denies any nausea or vomiting fever or chills, patient had a new onset atrial fibrillation he was started on diltiazem drip rate is trending down seen by cardiology stop the drip and will resume his Coreg 12.5 mg b.i.d., today patient is clinically stable is still passing gas but no BM is able to tolerate clear liquid is seen by surgery team he can be discharged home today, his seen by archeology faculty member will resume Coreg and will start Eliquis later today, patient to hold Lasix and losartan until he is seen by primary care doctor as his blood pressure is running soft. (2) Atrial fibrillation with RVR: Onset Date: Unknown Code(s): I48.91 - Unspecified atrial fibrillation Status: Acute Assessment and Plan: Consider Cardiology consultation in am. Continue Cardizem IV for rate control. We will consider adding Digoxin IV for rate control if needed. Telemetry. Check TSH w/ reflex T4, Echocardiogram in am. Hold Elquis as the patient will likely need surgery for his ruptured appendicitis. (3) Diabetes mellitus: Qualifiers: Diabetes mellitus type: type 1 Diabetes mellitus complication status: without complication Qualified Code(s): E10.9 - Type 1 diabetes mellitus without complications Code(s): E11.9 - Type 2 diabetes mellitus without complications Status: Deleted Assessment and Plan: Accuchecks, SSI Coverage, Hypoglycemic protocol. (4) Hypertension: Onset Date: Unknown Qualifiers: Hypertension type: unspecified Qualified Code(s): I10 - Essential (primary) hypertension Code(s): I10 - Essential (primary) hypertension Status: Chronic Assessment and Plan: Monitor blood pressure. Resume home Coreg when appropriate. (5) CHF (congestive heart failure): Onset Date: Unknown Qualifiers: Heart failure type: unspecified Heart failure chronicity: chronic Qualified Code(s): I50.9 - Heart failure, unspecified Code(s): I50.9 - Heart failure, unspecified Status: Chronic Assessment and Plan: Currently compensated. Monitor Is and Os, daily weights. We will consider Lasix IV as needed. Resume home oral CHF meds when the patient is eating again. Subjective Date/time seen: 03/29/20 13:57 patient is 74-year-old male had developed right lower quadrant abdominal pain for few days patient pain was persisting patient presented emergency department further evaluation is found to have ruptured appendix, patient is seen by surgery team plan is to take the patient to OR later today for surgical repair, patient still complains of abdominal pain currently denies any nausea or vomiting fever or chills his is pre
== END 2020-03-29 15:00 | disposition home or self-care (01) | DRG 340 ==
LOC: ANHED 21:45 → ANHIMU 22:00
PROVIDERS: Emergency Medicine; Family Medicine; Admitting Provider Surgery; Emergency Provider Emergency Medicine; PCP Family Medicine Adolescent Medicine; Visit Provider Surgery
PROC: 0DTJ4ZZ Resection of Appendix, Percutaneous Endoscopic Approach (ICD-10-PCS; CPT 44970; principal; 2020-03-27 13:30)
DX: K35.32 Acute appendicitis with perforation, localized peritonitis, and gangrene, without abscess (principal); I48.91 Unspecified atrial fibrillation; Z79.01 Long term (current) use of anticoagulants; I50.9 Heart failure, unspecified; E11.9 Type 2 diabetes mellitus without complications; I11.0 Hypertensive heart disease with heart failure
CPT/HCPCS: 36415; 71045; 71046; 74177; 80053; 80076; 81001; 83605; 83690; 83735; 83880; 84443; 84484; 85025; 85055; 85610; 85730; 88304; 93005; 93306; 96374; 96375; 99285; A9270; J0330; J1100; J1650; J1940; J2250; J2270; J2405; J2543; J2704; J2710; J3010; J7030; J7120; Q9967

== ENCOUNTER 2020-11-08 13:44 | Outpatient (CLI) | payer MEDICARE, SELFPAY | END 2020-11-08 13:45 | disposition home or self-care (01) | LOC: ANHCOVIDVC 13:44 | PROVIDERS: PCP Family Medicine Adolescent Medicine | DX: Z23 Encounter for immunization (principal) | CPT/HCPCS: 0001A; 91300 ==

== ENCOUNTER 2020-11-29 13:45 | Outpatient (CLI) | payer MEDICARE, SELFPAY | END 2020-11-29 13:46 | disposition home or self-care (01) | LOC: ANHCOVIDVC 13:45 | PROVIDERS: PCP Family Medicine Adolescent Medicine | DX: Z23 Encounter for immunization (principal) | CPT/HCPCS: 0002A; 91300 ==

== ENCOUNTER → 2025-03-30 13:09 | Outpatient (CLI) | payer MEDICARE, SELFPAY ==
--- NOTE | ~2025-03-30 | XR_ITS ---
EXAM/PROCEDURE: XR chest 2V - 03/30/2025 13:20 CDT HISTORY: 79 years old Male with R06.02 - Shortness of breath TECHNIQUE: Two view(s) of the chest. COMPARISON: 03/29/2020 FINDINGS: LUNGS/ PLEURA: No focal consolidation. No appreciable pneumothorax or large pleural effusion. Bibasil ar opacities likely represent atelectasis and/or scarring. Superimposed infection or edema cannot be excluded. HEART/ MEDIASTINUM: Mild cardiomegaly. BONES: Degenerative changes. OTHER: Visualized upper abdomen is unremarkable. IMPRESSION: Bibasilar opacities likely represent atelectasis and/or scarring. Superimposed infection or edema can not be excluded. Clinical correlation is recommended. Reviewed, dictated and finalized at location A. IMPRESSION: Bibasilar opacities likely represent atelectasis and/or scarring. Superimposed infection or edema cannot be excluded. Clinical correlation is recommended.
== END ==
LOC: EXPCRAD 13:12
PROVIDERS: PCP Family Medicine Adolescent Medicine; Visit Provider Family Medicine Adolescent Medicine
DX: R06.02 Shortness of breath (principal)
CPT/HCPCS: 71046